=== PATIENT | male | born 1960 | race Caucasian/White ===

== ENCOUNTER 2016-11-12 11:42 | Emergency (ER) | payer SELFPAY ==
--- NOTE | 2016-11-12 12:05 | Emergency Department Record ---
History of Present Illness - General Chief complaint: Pain Stated complaint: SHOULDER PAIN Time Seen by Provider: 11/12/16 11:59 Source: Patient Mode of Arrival: Ambulatory Limitations: No limitations - History of Present Illness Initial comments: 55 yo male presents with bilateral shoulder pain. He tripped about 2 weeks ago. His arms were caught behind him. He has had pain since that time. He was seen in the [facility]. No XR taken. No prior surgery. No PCP. MD Complaint: Joint pain Onset/Timin -: Week(s) Location: Left, Right, Elbow, Shoulder History of Same: No Radiation: Proximal Severity scale (1-10): 6 Quality: Aching Consistency: Intermittent Improves with: Nothing Worsens with: Nothing Associated Symptoms: Denies other symptoms - Related Data Previous Rx's Medication Instructions Recorded Hydrocodone/Acetaminophen [Pengilly 1 tab PO BID PRN #12 tab 11/12/16 5mg/325mg] Naproxen [Naprosyn] 500 mg PO Q12H #25 tab. 11/12/16 Allergies Allergy/AdvReac Type Severity Reaction Status Date / Time No Known Drug Allergies Allergy Verified 11/12/16 11:58 Travel Screening - Travel/Exposure Within Last 30 Days Have you traveled within the last 30 days?: No Review of Systems Constitutional: Denies: Fever, Malaise, Weakness Eyes: Denies: Eye discharge ENT: Denies: Congestion Respiratory: Denies: Cough Cardiovascular: Denies: Chest pain, Palpitations, Syncope Endocrine: Denies: Fatigue Gastrointestinal: Denies: Abdominal pain, Diarrhea, Nausea, Vomiting Musculoskeletal: Reports: As per HPI, Arthralgia, Myalgia. Denies: Joint swelling, Neck pain Skin: Denies: Bruising, Change in color Neurological: Denies: Headache Psychiatric: Denies: Anxiety Hematological/Lymphatic: Denies: Blood Clots, Easy bleeding, Easy bruising Past Medical History - SOCIAL HISTORY Smoking Status: Current every day smoker Alcohol Use: None Drug Use: None - RESPIRATORY Hx Respiratory Disorders: No - CARDIOVASCULAR Hx Cardio Disorders: No - NEURO Hx Neuro Disorders: No - GI Hx GI Disorders: Yes Hx Reflux: Yes - Hx Genitourinary Disorders: No - ENDOCRINE Hx Endocrine Disorders: No Hx Diabetes: No Hx Thyroid Disease: No - MUSCULOSKELETAL Hx Musculoskeletal Disorders: Yes Hx Arthritis: Yes - PSYCH Hx Psych Problems: No - HEMATOLOGY/ONCOLOGY Hx Hematology/Oncology Disorders: No Family Medical History Any Significant Family History?: Yes Hx Cancer: Father Physical Exam - General General Appearance: Alert, Oriented x3, Cooperative, No acute distress Limitations: No limitations - Head Head exam: Atraumatic, Normal inspection - Eye Eye exam: Normal appearance. negative: Conjunctival injection, Periorbital swelling - ENT ENT exam: Normal exam Ear exam: Normal external inspection Nasal Exam: Normal inspection Mouth exam: Normal external inspection - Neck Neck exam: Normal inspection, Full ROM. negative: Tenderness - Respiratory Respiratory exam: Normal lung sounds bilaterally. negative: Respiratory distress - Cardiovascular Cardiovascular Exam: Regular rate, Normal rhythm, Normal heart sounds Peripheral Pulses: 2+: Radial (R), Radial (L) - GI/Abdominal GI/Abdominal exam: Soft. negative: Tenderness - Rectal Rectal exam: Deferred - exam: Deferred - Extremities Extremities exam: Normal inspection, Normal capillary refill, Tenderness. negative: Full ROM, Joint swelling Image of Full Body: 1 - bilateral anterior shoulder tenderness, no pain bilateral with internal rotation, mild pain with full external rotation. pain noted with abduction bilateral, no swelling. - Back Back exam: Reports: Normal inspection, Full ROM. Denies: CVA tenderness (R), CVA tenderness (L), Muscle spasm, Paraspinal tenderness, Rash noted, Tenderness , Vertebral tenderness - Neurological Neurological exam: Alert, Normal gait, Oriented X3 - Psychiatric Psychiatric exam: Normal affect, Normal mood. negative: Agitated, Anxious - Skin Skin exam: Dry, Intact, Normal color, Warm Course Vital Signs 11/12/16 11:46 Temperature 97.9 F Pulse Rate 77 Respiratory 20 Rate Blood Pressure 143/90 Pulse Ox 98 - Reevaluation(s) Reevaluation #1: The patient was seen and examined XR ordered of bilateral shoulders. 11/12/16 12:09 Reevaluation #2: Bilateral XR's negative for acute process. Degenerative changes noted The patient will be encouraged to follow up with PCP. 11/12/16 13:06 Disposition Disposition: Discharge Clinical Impression: Sprain of Shoulder Qualifiers: Encounter type: initial encounter Shoulder sprain type: unspecified sprain Laterality: unspecified laterality Qualified Code(s): S43.409A - Unspecified sprain of unspecified shoulder joint, initial encounter Disposition: Home, Self-Care Condition: (1) Good Instructions: Shoulder Sprain (ED) Additional Instructions: Ice to the sore areas Follow up with your new family doctor If the pain continues you may need MRI or orthopedic referral No driving while on pain medication. Try to take only at night and not when driving. Prescriptions: Naproxen [Naprosyn] 500 mg PO Q12H #25 tab. Hydrocodone/Acetaminophen [Pengilly 5mg/325mg] 1 tab PO BID PRN #12 tab PRN Reason: Pain - General Forms: Patient Portal Access Time of Disposition: 13:10
--- NOTE | 2016-11-18 08:26 | RADIOLOGY REPORT ---
EXAM: LEFT SHOULDER HISTORY: PAIN. TECHNIQUE: Four views of the left shoulder were obtained. Comparison: None. Encounter: Initial. FINDINGS: Negative for fracture or dislocation. Mild degenerative change. IMPRESSION: NEGATIVE FOR ACUTE ABNORMALITY. JOB NUMBER: [id number] MTDD
--- NOTE | 2016-11-18 08:28 | RADIOLOGY REPORT ---
EXAM: RIGHT SHOULDER HISTORY: PAIN. TECHNIQUE: Three views of the right shoulder were obtained. Comparison: None. Encounter: Initial. FINDINGS: Negative for fracture or dislocation. The soft tissues are unremarkable. Mild degenerative changes of the acromioclavicular joint. IMPRESSION: MILD DEGENERATIVE CHANGES OF THE ACROMIOCLAVICULAR JOINT. JOB NUMBER: [id number] MTDD
== END 2016-11-12 13:21 | disposition home or self-care (01) ==
LOC: ER 11:42
DX: S43.402A Unspecified sprain of left shoulder joint, initial encounter (principal); S43.401A Unspecified sprain of right shoulder joint, initial encounter; W18.09XA Striking against other object with subsequent fall, initial encounter
CPT/HCPCS: 99283

== ENCOUNTER 2018-06-09 13:52 | Observation (INO) | payer SELFPAY ==
--- NOTE | 2018-06-09 14:04 | Emergency Department Record ---
History of Present Illness - General Chief Complaint: Fall Injury Stated Complaint: FALL INJURY Time Seen by Provider: 06/09/18 13:53 Source: Patient, EMS - History of Present Illness Initial Comments: The patient and EMS state that he fell when he stepped into a hole on Wednesday06-04-18. He crawled around home for the next few days. 06-06-18, he tried weight bearing and fell again injuring his right shoulder/clavicle. Today he called EMS for help. The patient lives alone in his home, but state his friends came by to help feed him. He also states his neck hurts. He denies head , chest wall/rib, abdominal pain. MD Complaint: Fall - Related Data Home Medications Medication Instructions Recorded Confirmed Last Taken No Home Med [NO HOME MEDS] 06/09/18 06/09/18 Unknown Allergies Allergy/AdvReac Type Severity Reaction Status Date / Time pine nut Allergy CONGESTION Verified 06/09/18 14:03 Review of Systems Reviewed: No additional complaints except as noted below Constitutional: Reports: As per HPI. Denies: Chills, Fever, Malaise, Night sweats, Weakness, Weight change Eyes: Reports: As per HPI. Denies: Eye discharge, Eye pain, Photophobia, Vision change ENT: Reports: As per HPI. Denies: Congestion, Dental pain, Ear pain, Epistaxis , Hearing loss, Throat pain Respiratory: Reports: As per HPI. Denies: Cough, Dyspnea, Hemoptysis, Stridor, Wheezes Cardiovascular: Reports: As per HPI. Denies: Arrhythmia, Chest pain, Dyspnea on exertion, Edema, Murmurs, Orthopnea, Palpitations, Paroxysmal nocturnal dyspnea, Rheumatic Fever, Syncope Endocrine: Reports: As per HPI. Denies: Fatigue, Heat or cold intolerance, Polydipsia, Polyuria Gastrointestinal: Reports: As per HPI. Denies: Abdominal pain, Constipation, Diarrhea, Hematemesis, Hematochezia, Melena, Nausea, Vomiting Genitourinary: Reports: As per HPI. Denies: Dysuria, Frequency, Hematuria, Incontinence, Retention, Testicular pain, Testicular mass, Urgency Musculoskeletal: Reports: As per HPI. Denies: Arthralgia, Back pain, Gout, Joint swelling, Myalgia, Neck pain Skin: Reports: As per HPI. Denies: Bruising, Change in color, Change in hair/ nails, Lesions, Pruritus, Rash Neurological: Reports: As per HPI. Denies: Abnormal gait, Confusion, Headache, Numbness, Paresthesias, Seizure, Tingling, Tremors, Vertigo, Weakness Psychiatric: Reports: As per HPI. Denies: Anxiety, Auditory hallucinations, Depression, Homicidal thoughts, Suicidal thoughts, Visual hallucinations Hematological/Lymphatic: Reports: As per HPI. Denies: Anemia, Blood Clots, Easy bleeding, Easy bruising, Swollen glands Past Medical History - SOCIAL HISTORY Smoking Status: Current every day smoker Drug Use: None - RESPIRATORY Hx Respiratory Disorders: No - CARDIOVASCULAR Hx Cardio Disorders: No - NEURO Hx Neuro Disorders: No - GI Hx GI Disorders: Yes Hx Reflux: Yes - Hx Genitourinary Disorders: No - ENDOCRINE Hx Endocrine Disorders: No Hx Diabetes: No Hx Thyroid Disease: No - MUSCULOSKELETAL Hx Musculoskeletal Disorders: Yes Hx Arthritis: Yes - PSYCH Hx Psych Problems: No - HEMATOLOGY/ONCOLOGY Hx Hematology/Oncology Disorders: No Family Medical History Hx Cancer: Father Physical Exam - General General Appearance: Alert, Oriented x3, Cooperative, Moderate distress, Other ( arrived by EMS with sling to right shoulder, incontinent of stool/urine) - Head Head exam: Atraumatic, Normal inspection - Eye Eye exam: Normal appearance, PERRL, EOMI. negative: Conjunctival injection, Nystagmus Pupils: Normal accommodation - ENT ENT exam: Normal exam, Mucous membranes moist, Normal external ear exam, Normal orophraynx, TM's normal bilaterally Ear exam: Normal external inspection. negative: External canal tenderness Nasal Exam: Normal inspection. negative: Discharge, Sinus tenderness Mouth exam: Normal external inspection, Tongue normal Teeth exam: Normal inspection. negative: Dental caries Throat exam: Normal inspection. negative: Tonsillar erythema, Tonsillar exudate - Neck Neck exam: Normal inspection, Full ROM, Other (tender posteriorly diffusely wit no step off). negative: Tenderness - Respiratory Respiratory exam: Normal lung sounds bilaterally, Other (tender right clavicle on palpation both medially and laterally at shoulder joint). negative: Respiratory distress - Cardiovascular Cardiovascular Exam: Regular rate, Normal rhythm, Normal heart sounds - GI/Abdominal GI/Abdominal exam: Soft, Normal bowel sounds. negative: Distended, Tenderness - Rectal Rectal exam: Deferred - exam: Deferred - Extremities Extremities exam: Normal inspection, Full ROM, Normal capillary refill, Other ( left lateral hip). negative: Calf tenderness, Pedal edema, Tenderness - Back Back exam: Reports: Normal inspection, Full ROM. Denies: CVA tenderness (R), CVA tenderness (L), Muscle spasm, Rash noted, Tenderness - Neurological Neurological exam: Alert, CN II-XII intact, Oriented X3. negative: Motor sensory deficit - Psychiatric Psychiatric exam: Normal affect, Normal mood - Skin Skin exam: Dry, Intact, Normal color, Warm Course - Reevaluation(s) Reevaluation #1: Attempting to get patient to sit up was with great difficulty. 'He lives up two flights of stairs alone, and is unable to ambulate. She cannot use a walker due to his need for a sling of his right shoulder. 06/09/18 16:52 Reevaluation #2: Patient is clearly unable to ambulate, stand, or weight bear on his left leg due to hip pain. He is unable to use a walker due to his right shoulder pain with a sling. He lives alone upstairs which he cannot climb. Discussed case with Dr. St who agrees to admit patient for observation. Dilaudid shot has helped him slightly move from a 10/10 level to a 8.5/10 level. HE is asking for food. He is in agreement with admission and rehab program. 06/09/18 17:01 06/09/18 18:09 Medical Decision Making - Management Options MDM Management: Additional Work-up Planned (e.g. ADM/Transfer/OP Study) - Data Complexity MDM Data: Labs Ordered and/or Reviewed, X-Ray Ordered and/or Reviewed (CT scans of Head, Cervical Spine, Chest, pelvis reveal no fractures, but multiple sites of DJD and chronic changes. An Incidental parotid mass/lymph node was seen on the Cervical CT which needs follow up with ENT as out patient. ) - Lab Data Result diagrams: 06/09/18 14:13 06/09/18 14:13 Disposition Disposition: Admit Clinical Impression: Inability to ambulate due to hip, Mass of parotid gland Contusion of hip, left Qualifiers: Encounter type: initial encounter Qualified Code(s): S70.02XA - Contusion of left hip, initial encounter Contusion of shoulder, right Qualifiers: Encounter type: initial encounter Qualified Code(s): S40.011A - Contusion of right shoulder, initial encounter Disposition: Still a Patient at [facility] Decision to Admit: Admit from ER Decision to Admit Date: 06/09/18 Decision to Admit Time: 18:16 Accepting Physician: Dr. St Time Discussed w/Accepting Physician: 16:00 Condition: (2) Stable Instructions: Fall Prevention for Older Adults (ED) Additional Instructions: Obtain ENT referral for mass in your parathyroid gland found on CT scan of your neck today. Dental referral for care of your teeth. Sling right arm for comfort. Forms: Patient Portal Access Quality - Quality Measures Quality Measures: N/A - Blood Pressure Screening Does Patient Have Any of the Following: No Blood Pressure Classification: Pre-Hypertensive BP Reading Systolic Measurement: 156 Diastolic Measurement: 82 Screening for High Blood Pressure: < Pre-Hypertensive BP, F/U Documented > [ [id number]] Pre-Hypertensive Follow-up Interventions: Follow-up with rescreen every year.
[2018-06-09 14:21] LABS: HEMATOCRIT 45.9 % (42.0-52.0); HEMOGLOBIN 15.6 gm/dl (14.0-18.0); MEAN CELL VOLUME 94.3 fl (81-97); MEAN PLATELET VOLUME 9.5 fl (7.4-10.4); PLATELET COUNT 238 K/uL (130-400); RED BLOOD COUNT 4.87 M/uL (4.40-5.70); WHITE BLOOD COUNT W/O DIFF 14.1 K/uL (4.2-12.2)
[2018-06-09 14:22] LABS: URINE APPEARANCE CLEAR; URINE BILIRUBIN NEGATIVE (NEGATIVE); URINE BLOOD LARGE (NEGATIVE); URINE GLUCOSE (UA) NEGATIVE (NEGATIVE); URINE KETONE TRACE (NEGATIVE); URINE LEUKOCYTE ESTERASE NEGATIVE (NEGATIVE); URINE NITRITE NEGATIVE (NEGATIVE)
[2018-06-09 14:29] LABS: URINE BACTERIA NONE SEEN; URINE COLOR AMBER; URINE EPITHELIAL CELLS NONE SEEN (FEW); URINE RBC 16 - 25 (NONE SEEN); URINE WBC NONE SEEN (0-2/hpf)
[2018-06-09 14:34] LABS: PLATELET ESTIMATE NORMAL (NORMAL)
[2018-06-09 14:37] LABS: BLOOD UREA NITROGEN 13 mg/dL (6-20); CREATININE 0.7 mg/dL (0.7-1.2); EST GLOMERULAR FILTRATION RATE > 60 mL/min; TOTAL PROTEIN 7.9 g/dL (6.6-8.7)
[2018-06-09 14:40] LABS: GLUCOSE,RANDOM 152 mg/dL (74-109)
[2018-06-09 14:42] LABS: ALKALINE PHOSPHATASE 165 U/L (40-129); ALT/SGPT 23 U/L (<41); AST/SGOT 22 U/L (10.0-50.0); BILIRUBIN,DIRECT 0.3 mg/dL (0-0.3)
[2018-06-09] MEDS ORDERED: 0.9 % SODIUM CHLORIDE 1,000 ML BAG IV ONE ×2 (15:07→15:50)
[2018-06-09] MEDS ORDERED: ACETAMINOPHEN 325 MG TAB PO ONE (15:51)
[2018-06-09] MEDS ORDERED: PROMETHAZINE HCL 25 MG/ML VIAL IM ONE (17:00)
[2018-06-09] MEDS ORDERED: HYDROMORPHONE HCL 2 MG/ML VIAL IM ONE (17:00)
[2018-06-09] MEDS ORDERED: AL HYDROX/MAG HYDROX 30ML UD PO PRN (20:42)
[2018-06-09] MEDS ORDERED: ACETAMINOPHEN 500 MG TABLET PO PRN (20:42)
[2018-06-09] MEDS ORDERED: IBUPROFEN 400 MG TABLET PO PRN (20:42)
--- NOTE | 2018-06-10 07:26 | CT SCAN REPORT ---
EXAM: HEAD CT WITHOUT CONTRAST HISTORY: PATIENT FELL FIVE DAYS AGO AT HOME. TECHNIQUE: Axial CT scan of the head was performed without IV contrast. Comparison: None. Encounter: Initial. FINDINGS: No definite acute intracranial hemorrhage identified. No focal mass effect or midline shift evident. Mild generalized atrophy is present. No definite acute infarct or intracranial mass lesion seen. Small cysts or polyps in the left maxillary sinus and probably a single very tiny one in the right maxillary sinus as well. No depressed calvarial fracture evident. IMPRESSION: 1. NO DEFINITE ACUTE INTRACRANIAL HEMORRHAGE OR FOCAL MASS EFFECT EVIDENT. 2. MILD GENERALIZED ATROPHY. 3. SMALL CYSTS OR POLYPS IN THE LEFT MAXILLARY ANTRUM. JOB NUMBER: [id number] MTDD
--- NOTE | 2018-06-10 07:40 | CT SCAN REPORT ---
EXAM: EMERGENCY CERVICAL SPINE CT HISTORY: PATIENT FELL FIVE DAYS AGO AT HOME. TECHNIQUE: Axial CT scan of the entire cervical spine was performed without IV contrast. Comparison: None. Encounter: Initial. FINDINGS: There are some small cysts or polyps in both maxillary antra inferiorly. No apical pneumothorax is evident. Some extensive dental caries are seen particularly involving several of the molars bilaterally. Dental consultation may be useful. There is an approximately 2.3 x 1.9 cm slightly oval soft tissue mass like density in the region of the posterior aspect of the left parotid gland measuring about 3.5 cm in craniocaudal height. This may be a single considerably enlarged lymph node although an actual parotid mass cannot be excluded. There are what are likely a few mildly prominent lymph nodes along the posterior aspect of the right parotid as well, the largest is about 2.0 x 0.9 x 2 cm in size. There is fairly diffuse cervical stenosis which is probably largely related to a relatively congenitally small spinal canal although there is a mild disk protrusion posteriorly at the C5-C6 level as well. There may be disk protrusion at the C6-C7 level also. Degenerative change at the odontoid-anterior arch of C1 articulation. Prominent spurring along the anterior aspect of the cervical spine at the C3-C4 and C5-C6 levels. IMPRESSION: 1. NO DEFINITE FRACTURE OR PREVERTEBRAL SOFT TISSUE SWELLING SEEN IN THE CERVICAL SPINE. 2. 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 3. SOFT TISSUE DENSITIES ALONG THE POSTERIOR ASPECT OF BOTH PAROTID GLANDS, LARGER ON THE LEFT MEASURING UP TO 3.5 CM IN CRANIOCAUDAL LENGTH ON THE LEFT. THESE MAY REPRESENT BILATERAL ENLARGED INTRA/PERIPAROTID LYMPH NODES ALTHOUGH A PAROTID NODULE ON THE LEFT IN PARTICULAR COULD NOT BE EXCLUDED. ENT CONSULTATION SUGGESTED. 4. FAIRLY EXTENSIVE DENTAL CARIES INVOLVING SEVERAL MOLARS BILATERALLY AND DENTAL CONSULTATION MAY ALSO BE USEFUL. JOB NUMBER: [id number] MTDD
--- NOTE | 2018-06-10 07:49 | CT SCAN REPORT ---
EXAM: EMERGENCY CT SCAN OF THE CHEST WITHOUT CONTRAST WITH POST PROCESSING HISTORY: PATIENT FELL FIVE DAYS AGO AT HOME. TECHNIQUE: Axial CT scan of the chest was performed without IV contrast. Post processing on an independent workstation was performed with 3D volume rendered as well as 2D multiplanar reformatted series. Comparison: CTA of the chest dated 08/15/16. FINDINGS: No pneumothorax evident. Previously seen right pleural effusion and right lower lobe infiltrate has cleared in the interval. Some small scattered bullae are again seen consistent with underlying emphysema as before. Densely calcified granuloma right mid lung laterally with calcified right hilar and mediastinal nodes again seen consistent with old granulomatous disease. There are calcified splenic granulomas as well. No hilar or mediastinal adenopathy aside from the calcified lymph nodes evident. A small amount of pericardial fluid anteriorly also present previously. No pleural effusion on either side today. Prominent spurring in the lower thoracic spine. There is some new compression of the superior end plate of the body of T9 compared to the prior CTA, however, no retropulsion of the body of T9 into the spinal canal evident. IMPRESSION: 1. UNDERLYING EMPHYSEMA BEFORE. 2. CALCIFIED GRANULOMA ON THE RIGHT WITH CALCIFIED RIGHT HILAR MEDIASTINAL NODES. 3. SMALL AMOUNT OF PERICARDIAL FLUID ANTERIORLY ALSO PRESENT PREVIOUSLY. 4. CLEARING OF THE PREVIOUSLY SEEN RIGHT PLEURAL EFFUSION AND RIGHT BASILAR INFILTRATE SINCE 08/15/16. 5. NEW MILD COMPRESSION OF THE SUPERIOR END PLATE OF THE BODY OF T9 SINCE 08/15. NO RETROPULSION EVIDENT. EXUBERANT HYPERTROPHIC SPURRING AT THIS LEVEL WELL ANTERIORLY WHICH HAS PROGRESSED FROM THE PRIOR STUDY ALSO. JOB NUMBER: [id number] MTDD
--- NOTE | 2018-06-10 08:01 | CT SCAN REPORT ---
EXAM: CT OF THE ABDOMEN AND PELVIS WITHOUT CONTRAST WITH POST PROCESSING HISTORY: PATIENT FELL FIVE DAYS AT HOME WITH LEFT HIP PAIN. TECHNIQUE: Axial CT scan of the abdomen and pelvis was performed without IV contrast. Post processing on an independent workstation was performed with 2D multiplanar as well as 3D volume rendered series. Comparison: No prior CT of the abdomen and pelvis with which to compare. Encounter: Initial. FINDINGS: There is questionably a small faint gallstone in the dependent portion of the gallbladder. No additional findings to suggest acute cholecystitis currently. No intrarenal calculi identified on either side. No hydronephrosis or hydroureter is seen, and no ureteral calculus or bladder calculus evident. There is evidence of mild prostate calcifications present. Evaluation of the bowel and viscera is extremely limited without oral or IV contrast. Given this limitation, no definite hepatic, splenic, right adrenal, pancreatic, or renal mass evident. There are some small calcified splenic granulomas present. There is also a small nodule in the left adrenal measuring only about 12 mm in size. This has a noncontrast CT density of 17 and may well represent an incidental adenoma although is still indeterminate on this noncontrast study. There is some mild lower pelvic/upper inguinal adenopathy with the largest node on the right measuring about 1.5 cm in maximum short axis and on the left 1.2 cm. There is some borderline common iliac chain nodes on the right and also some slightly prominent, but normal size retroperitoneal nodes. Some prominent nodes more inferiorly in the inguinal regions bilaterally as well measuring up to about 1.5 cm in maximum short axis bilaterally. The appendix is visualized and appears negative. No free intraperitoneal air or free intraperitoneal fluid evident. Prominent facet joint arthropathy in the lower lumbar spine. Degenerative arthritis in both hips possibly with avascular necrosis in both hips, but no definite acute fracture or dislocation of either hip evident. IMPRESSION: 1. CALCIFIED SPLENIC GRANULOMAS. 2. POSSIBLE SMALL GALLSTONE IN THE GALLBLADDER. 3. SOME BILATERAL LOW PELVIC/INGUINAL ADENOPATHY WITH SOME MILDLY PROMINENT UPPER PELVIC NODES AND RETROPERITONEAL NODES WELL. THESE ARE NONSPECIFIC. 4. PROSTATE CALCIFICATIONS. 5. DEGENERATIVE ARTHRITIS BOTH HIPS POSSIBLY WITH AVASCULAR NECROSIS IN BOTH FEMORAL HEADS, BUT NO DEFINITE ACUTE FRACTURE OR DISLOCATION OF EITHER HIP EVIDENT. JOB NUMBER: [id number] [facility]
--- NOTE | 2018-06-10 08:11 | RADIOLOGY REPORT ---
EXAM: LEFT FOOT, THREE VIEWS HISTORY: SORES ON BOTH FEET. TECHNIQUE: AP, lateral and oblique views of the left foot were obtained. Encounter: Initial. FINDINGS: There has been erosion of the tuft of the first distal phalanx. The margin appears somewhat sclerotic. At the lateral base of the first distal phalanx there is some lucency. Hypertrophic spurring in the mid foot. No other bone or joint abnormality identified. IMPRESSION: EROSION OF THE TUFT OF THE FIRST DISTAL PHALANX SUGGESTING OSTEOMYELITIS, WHICH APPEARS CHRONIC, HOWEVER, THERE IS LUCENCY AT THE LATERAL BASE OF THE FIRST DISTAL PHALANX WHICH MAY REPRESENT AN AREA OF ACUTE OSTEOMYELITIS OR HEALING FRACTURE. JOB NUMBER: [id number] [facility]
--- NOTE | 2018-06-10 08:15 | RADIOLOGY REPORT ---
EXAM: RIGHT FOOT, THREE VIEWS HISTORY: NONHEALING SORES. TECHNIQUE: Three views of the right foot were obtained. Comparison: None. Encounter: Initial. FINDINGS: Severe erosive degenerative changes at the first MTP joint and first interphalangeal joint. The tuft of the first distal phalanx appears to be extending beyond the soft tissues. No acute fracture or dislocation is identified. IMPRESSION: SEVERE EROSIVE DEGENERATIVE CHANGES AT THE FIRST METATARSAL PHALANGEAL JOINT WHICH COULD BE SEEN WITH GOUT. THE FIRST DISTAL PHALANX APPEARS TO BE EXTENDING BEYOND THE SOFT TISSUES. JOB NUMBER: [id number] MTDD
--- NOTE | 2018-06-10 14:05 | Physical Therapy Tx Note ---
Physical Therapy Tx Note - Treatment Note Tolerated: Other Physical Therapy Tx Note: Detail (PT orders received. Patient is set to transfer due to medical condition. PT evaluation will not be completed at this time.)
--- NOTE | 2018-06-10 14:06 | Occupational Therapy Tx Note ---
Occupational Therapy Tx Note - Treatment Note Occupational Therapy Treatment Note: Detail (Spoke with nursing, and was informed that patient is transferring to a different medical facility due to medical condition. Patient will not be evaluated at this time.)
--- NOTE | 2018-06-10 20:58 | History & Physical ---
History of Present Illness - Date of Service Date of Service for History & Physical: 06/10/18 - History of Present Illness Admitting Diagnosis: Hip contusion; shoulder/clavicle strain; inability to ambulate History of Present Illness: Les Estevez is a 57 year old male who presented to the ED on 06/09/18 after 2 falls and increased weakness in his home. Reported that the second fall resulted in pain to his right shoulder. Initial WBC 14.1. While in ED, pt had Abdomen CT which indicated bilateral pelvic/inguinal adenopathy but otherwise negative for acute process, Cervical spine CT had incidental finding of parotid gland mass but otherwise negative for acute process and head CT was negative for acute process. Pt was admitted for pain control and PT/OT was ordered. Upon arrival to medical surgical floor, nursing staff assessed pt and discovered that pt had necrotic toes to bilateral feet. Further investigation by nursing staff revealed that the pt had reported he had dropped an engine on his toes approximately 3 weeks prior and had been trying to care for them on his own. Staff reported that the socks were stuck to the skin and were pulling off bits of flesh as the socks were removed. Staff reported significant malodor and bone protrusion. X-ray revealed possible acute osteomyelitis. Surgical consult was placed however surgeon unable to see pt until Wednesday. D/t delay in possible treatment, pt was transferred to higher level of care, [facility]. Pt transferred prior to provider examination. Travel Screening - Travel/Exposure Within Last 30 Days Have you traveled within the last 30 days?: No - Travel/Exposure Within Last Year Have you traveled outside the [place] in the last year?: No - Additonal Travel Details Have you been exposed to anyone with a communicable illness?: No - Travel Symptoms Symptom Screening: None Review of Systems ROS unobtainable: Other (Pt transferred to higher level of care prior to provider examination) Past Medical History - SOCIAL HISTORY Smoking Status: Current every day smoker - RESPIRATORY Hx Respiratory Disorders: No Hx Pneumonia: Yes - CARDIOVASCULAR Hx Cardio Disorders: No - NEURO Hx Neuro Disorders: No - GI Hx GI Disorders: Yes Hx Reflux: Yes - Hx Genitourinary Disorders: No - ENDOCRINE Hx Endocrine Disorders: No Hx Diabetes: No Hx Thyroid Disease: No - MUSCULOSKELETAL Hx Musculoskeletal Disorders: Yes Hx Arthritis: Yes - PSYCH Hx Psych Problems: No - HEMATOLOGY/ONCOLOGY Hx Hematology/Oncology Disorders: No Family Medical History Any Significant Family History?: No Hx Cancer: Father H&P Meds/Allergies - Allergies Allergies: Allergies Allergy/AdvReac Type Severity Reaction Status Date / Time pine nut Allergy CONGESTION Verified 06/09/18 14:03 - Home Medications Home Medications Medication Instructions Recorded Confirmed Last Taken No Home Med [NO HOME MEDS] 06/09/18 06/09/18 Unknown Physical Exam - Vital Signs Vital Signs: Vital Signs - Last 24 Hrs Temp Pulse Resp BP BP Pulse Ox 06/10/18 14:10 8 F L 83 14 162/84 100 06/10/18 10:11 97.3 F L 151/86 06/10/18 08:00 97.3 F L 79 18 151/86 94 L 06/09/18 21:00 83 16 Results - Labs Result Diagrams: 06/09/18 14:13 06/09/18 14:13 - Imaging and Cardiology CT scan - abdomen Status: Image reviewed CT scan - head Status: Image reviewed VTE H&P Assessment - Risk for VTE Risk for VTE: Yes Risk Level: Moderate Risk Assessment Date: 06/10/18 Risk Assessment Time: 23:56 VTE Orders Placed or Will Be Placed: No VTE Reason for No Prophylaxis: Complication of Medical Care (Pt transferred to higher level of care prior to VTE assessment) Plan - Detailed Diagnosis and Plan (1) Necrotic toes Status: Acute Base Code: I96 - GANGRENE, NOT ELSEWHERE CLASSIFIED Comment: 06/10/18: -Foot injury appoximately 3 weeks prior, toes necrotic -Foot x-ray indicated possible osteomyelitis -Surgery consulted, unable to evaluate pt until Wednesday (2) Contusion of hip, left Status: Acute Qualifiers: Encounter type: initial encounter Qualified Code(s): S70.02XA - Contusion of left hip, initial encounter Base Code: S70.02XA - CONTUSION OF LEFT HIP, INITIAL ENCOUNTER Comment: : -PT/OT ordered - Disposition Pt transferred to higher level of care, [facility], for more rapid surgical consult r/t necrotic toes and possible acute osteomyelitis.
== END 2018-06-10 15:15 | disposition short-term general hospital (02) ==
LOC: ER 13:52 → MEDSURG 19:28
PROVIDERS: ADMIT Internal Medicine; ATTEND Internal Medicine
DX: S70.02XA Contusion of left hip, initial encounter (principal); S40.011A Contusion of right shoulder, initial encounter; L97.503 Non-pressure chronic ulcer of other part of unspecified foot with necrosis of muscle; R26.2 Difficulty in walking, not elsewhere classified; K11.8 Other diseases of salivary glands; W17.2XXA Fall into hole, initial encounter; K21.9 Gastro-esophageal reflux disease without esophagitis; M19.90 Unspecified osteoarthritis, unspecified site; F17.210 Nicotine dependence, cigarettes, uncomplicated; G37.4 Subacute necrotizing myelitis of central nervous system
CPT/HCPCS: 99285 ×2; 96372; 80076; 80048; 81001; 85027; 73630 ×2; 72125; 71250; 70450; 74176; G0378 ×2; J1170; 99220; J2550